=== PATIENT | male | born 1980 | race Caucasian/White ===

== ENCOUNTER 2020-12-27 22:17 | Inpatient (IN) | payer BC, OTHER ==
[~2020-12-27] VITALS: Ht 172.7 cm; Wt 78.9 kg
--- NOTE | 2020-12-27 22:46 | NUR ---
PT PRESENTS TO THE ER FOR CHIEF COMPLAINT OF BEING COVID POSITIVE, PTS SON HAD COVID AND PT STATED HE JUST KNEW HE HAD IT WELL, PT HAD A POSITIVE RAPID TEST LAST FRIDAY AND A POSITIVE PCR TEST ON FRIDAY, PTS HOME O2 SATURATION DROPPED TO 73% SO PT DECIDED TO COME IN, THIS RN STARTED PT ON 1 LPM NASAL CANULA BECAUSE PTS OXYGEN SATURATION WAS 82% ON ROOM AIR, PT HAS AN OCCASIONAL WEAK COUGH, PT CURRENTLY NOT FEBRILE
[2020-12-27] MEDS ORDERED: DEXAMETHASONE 10 MG in SODIUM CHLORIDE 0.9% 50 ML IV SCH (23:30)
[2020-12-27] MEDS ORDERED: SODIUM CHLORIDE FLUSH 10ML SYR IVF ONE (23:30)
[2020-12-27] MEDS ORDERED: SODIUM CHLORIDE 0.9% 1,000ML IVBOLUS ONE (23:30)
[2020-12-27] MEDS ORDERED: DEXAMETHASONE 4 MG/ML, 1ML IV ONE (23:30)
[2020-12-27] MEDS ORDERED: PLEASE ENTER ALLERGIES MC SCH (23:30)
[2020-12-27] MEDS ORDERED: DEXAMETHASONE 4 MG/ML, 1ML ONE (23:47)
[2020-12-27 23:54] LABS: ALANINE AMINOTRANSFERASE 58 U/L (12-78); ANION GAP 5 mmol/L (5-15); CALCIUM 8.1 mg/dL (8.5-10.1); CHLORIDE 104 mmol/L (98-107); CREATININE 0.77 mg/dL (0.7-1.3)
[2020-12-27 23:57] LABS: ALKALINE PHOSPHATASE 53 U/L (45-117); BASOPHILS % (AUTO) 1 % (0-1); BILIRUBIN,TOTAL 0.5 mg/dL (0.2-1.0); EOSINOPHILS % (AUTO) 0 % (1-7); LYMPHOCYTES % (AUTO) 12 % (22-44); MEAN CORPUSCULAR HEMOGLOBIN 29.1 pg (27.5-34.5); MEAN CORPUSCULAR HGB CONC 34.4 g/dL (33.2-36.2); MEAN PLATELET VOLUME 7.9 fL (7.4-10.4); MONOCYTES % (AUTO) 6 % (2-9); NEUTROPHILS % (AUTO) 82 % (42-75); PLATELET COUNT 198 x10^3/uL (130-400); RED BLOOD COUNT 4.64 x10^6/uL (4.38-5.82); RED CELL DISTRIBUTION WIDTH 13.1 % (9.4-14.8); TOTAL PROTEIN 6.5 g/dL (6.4-8.2)
[2020-12-28] MEDS ORDERED: AZITHROMYCIN 500 MG in SODIUM CHLORIDE 0.9% 250 ML IV ONE
--- NOTE | 2020-12-28 00:05 | NUR ---
PT LAYING IN BED, A/OX4, ALL NEEDS IN REACH, CALL LIHGT IN REACH, NAD AT THIS TIME, PT STATES HE FEELS MUCH BETTER HOOKED UP TO SOME OXYGEN, PT ON 1 LPM NASAL CANULA
[2020-12-28] MEDS ORDERED: ENALAPRILAT 1.25 MG/ML, 2ML IVPush PRN (00:30)
[2020-12-28] MEDS ORDERED: GUAIFENESIN/DM 200-20MG, 10ML UDC PO PRN (00:30)
[2020-12-28] MEDS ORDERED: morphine SULFATE 10 MG/ML, 1ML IVPush PRN (00:30)
[2020-12-28] MEDS ORDERED: ZOLPIDEM 5MG TABLET PO PRN (00:30)
[2020-12-28] MEDS ORDERED: REMDESIVIR 200 MG in SODIUM CHLORIDE 0.9% 250 ML IVPB ONE (00:30)
[2020-12-28] MEDS ORDERED: BACLOFEN 10 MG TABLET PO PRN (00:30)
[2020-12-28] MEDS ORDERED: AZITHROMYCIN 500 MG in SODIUM CHLORIDE 0.9% 250 ML IV SCH (00:30)
[2020-12-28] MEDS ORDERED: DOCUSATE 100 MG CAPSULE PO PRN (00:30)
[2020-12-28] MEDS ORDERED: ACETAMINOPHEN 325 MG TABLET PO PRN (00:30)
[2020-12-28] MEDS ORDERED: OXYcodone IR 5MG TABLET PO PRN (00:30)
[2020-12-28] MEDS ORDERED: CEFTRIAXONE 1,000 MG in DEXTROSE 5% 50 ML IVPB SCH (00:30)
[2020-12-28] MEDS ORDERED: PHARMACY MAY ADJ FOR RENAL FX MC PRN (00:30)
[2020-12-28 00:58] VITALS: BP 115/72
[2020-12-28] MEDS: BENZONATATE 100 MG CAPSULE PO SCH ×4 (01:51→20:28)
[2020-12-28] MEDS: ONDANSETRON 2MG/ML, 2ML IVPush PRN ×2 (01:52→08:37)
[2020-12-28] MEDS: ENOXAPARIN 40 MG/0.4 ML SQ SCH (01:52)
[2020-12-28] MEDS: CEFTRIAXONE 1,000 MG in DEXTROSE 5% 50 ML IVPB SCH (03:30)
[2020-12-28] MEDS ORDERED: ALBUTEROL-IPRATROPIUM MDI INH INH SCH (06:00)
[2020-12-28 06:28] LABS: ALANINE AMINOTRANSFERASE 54 U/L (12-78); ALBUMIN 2.6 g/dL (3.4-5.0); ANION GAP 6 mmol/L (5-15); CALCIUM 7.8 mg/dL (8.5-10.1); CHLORIDE 110 mmol/L (98-107); CREATININE 0.79 mg/dL (0.7-1.3)
[2020-12-28 06:30] LABS: ALKALINE PHOSPHATASE 53 U/L (45-117); BILIRUBIN,TOTAL 0.3 mg/dL (0.2-1.0)
[2020-12-28 08:13] VITALS: BP 107/68
[2020-12-28] MEDS: DEXAMETHASONE 4 MG TABLET PO SCH (08:39)
[2020-12-28] MEDS: ASCORBIC ACID 500 MG TABLET PO SCH ×2 (08:39→20:28)
[2020-12-28] MEDS: ZINC SULFATE 220 MG CAPSULE PO SCH (08:39)
[2020-12-28] MEDS: ALBUTEROL-IPRATROPIUM MDI INH INH SCH ×4 (09:43→20:28)
[2020-12-28] MEDS: CHOLECALCIFEROL 5,000u TAB PO SCH (15:10)
[2020-12-28 15:27] VITALS: BP 107/67
[2020-12-28 19:10] VITALS: BP 111/66
[2020-12-28] MEDS: THIAMINE 100MG TABLET PO SCH (20:28)
[2020-12-28] MEDS ORDERED: MELATONIN 5 MG TABLET PO SCH (21:00)
[2020-12-29] MEDS: ENOXAPARIN 40 MG/0.4 ML SQ SCH (00:24)
[2020-12-29 00:30] VITALS: BP 112/67
[2020-12-29] MEDS ORDERED: AZITHROMYCIN 500 MG in SODIUM CHLORIDE 0.9% 250 ML IV SCH (00:30)
[2020-12-29] MEDS ORDERED: REMDESIVIR 100 MG in SODIUM CHLORIDE 0.9% 250 ML IVPB SCH (00:30)
[2020-12-29] MEDS: CEFTRIAXONE 1,000 MG in DEXTROSE 5% 50 ML IVPB SCH ×2 (03:59→06:00)
[2020-12-29 05:25] LABS: HCT (SEDRATE) 38.8 % (39.2-51.8)
[2020-12-29 05:28] LABS: BASOPHILS % (AUTO) 0 % (0-1); EOSINOPHILS % (AUTO) 0 % (1-7); LYMPHOCYTES % (AUTO) 7 % (22-44); MEAN CORPUSCULAR HEMOGLOBIN 29.6 pg (27.5-34.5); MEAN PLATELET VOLUME 8.2 fL (7.4-10.4); MONOCYTES % (AUTO) 6 % (2-9); NEUTROPHILS % (AUTO) 87 % (42-75); PLATELET COUNT 248 x10^3/uL (130-400); RED BLOOD COUNT 4.66 x10^6/uL (4.38-5.82); RED CELL DISTRIBUTION WIDTH 13.4 % (9.4-14.8)
[2020-12-29 05:38] LABS: ALBUMIN 2.5 g/dL (3.4-5.0); CALCIUM 7.9 mg/dL (8.5-10.1); CHLORIDE 109 mmol/L (98-107)
[2020-12-29 05:51] LABS: ALANINE AMINOTRANSFERASE 52 U/L (12-78); ALKALINE PHOSPHATASE 47 U/L (45-117); ANION GAP 5 mmol/L (5-15); BILIRUBIN,TOTAL 0.3 mg/dL (0.2-1.0); CREATININE 0.68 mg/dL (0.7-1.3)
[2020-12-29] MEDS: CHOLECALCIFEROL 5,000u TAB PO SCH (09:26)
[2020-12-29] MEDS: BENZONATATE 100 MG CAPSULE PO SCH (09:26)
[2020-12-29] MEDS: DEXAMETHASONE 4 MG TABLET PO SCH (09:26)
[2020-12-29] MEDS: ASCORBIC ACID 500 MG TABLET PO SCH (09:26)
[2020-12-29] MEDS: ZINC SULFATE 220 MG CAPSULE PO SCH (09:27)
[2020-12-29] MEDS: THIAMINE 100MG TABLET PO SCH (09:27)
[2020-12-29 09:30] VITALS: BP 120/80
[2020-12-29] MEDS: ALBUTEROL-IPRATROPIUM MDI INH INH SCH (09:30)
[2020-12-29] MEDS ORDERED: PRED20TA PO (10:06)
[2020-12-29] MEDS ORDERED: AZIT500T10 PO (10:06)
[2020-12-29] MEDS ORDERED: AMOX-291 PO (10:06)
== END 2020-12-29 13:19 | disposition home or self-care (01) | DRG 177 ==
LOC: ED 23:40 → EDIP 12-28 00:21 → 3N 12-28 01:02
PROVIDERS: ADMIT Internal Medicine; ATTEND Family Medicine
DX: U07.1 COVID-19 (principal); J12.82 Pneumonia due to coronavirus disease 2019; J96.01 Acute respiratory failure with hypoxia; D64.9 Anemia, unspecified
CPT/HCPCS: 36415; 71045; 80053; 82728; 83605; 83615; 84145; 85025; 85379; 85651; 86140; 87040; 93005; 96365; 96375; G0378; J0456; J0696; J1100; J1650; J2405; J7030; J7050

== ENCOUNTER 2021-01-01 08:06 | Inpatient (IN) | payer BC ==
[~2021-01-01] VITALS: Ht 172.7 cm; Wt 76.3 kg
[~2021-01-01 08:06] MED LIST: AMOX-291 PO; AZIT500T10 PO; PRED20TA PO
--- NOTE | 2021-01-01 08:13 | NUR ---
PT BIBA FROM HOME FOR C/O SOB. PT POSITIVE FOR COVID 2 WEEKS AGO, STARTING LAST NIGHT PT FELT SOB. SPO2 IN 70'S. PT HAD HOME O2, USED 5L NC AND SPO2 AT 62%. 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 PT ON PREDNISONE, AMOXICILLIN & COMBAVENT. PT CONNECTED TO MONITORS. SPO2, 77% ON 15L NRB.
--- NOTE | 2021-01-01 08:15 | NUR ---
ERP AT BS
--- NOTE | 2021-01-01 08:17 | NUR ---
RT AT BS
--- NOTE | 2021-01-01 08:20 | NUR ---
RT AT BS, PT PLACED ON OPTI FLOW, 45L @ 100%. PT SPO2 AT 92%. PT RR 40.
[2021-01-01] MEDS ORDERED: SODIUM CHLORIDE 0.9% 1,000ML IVBOLUS ONE (08:30)
[2021-01-01] MEDS ORDERED: SODIUM CHLORIDE FLUSH 10ML SYR IVF ONE (08:30)
--- NOTE | 2021-01-01 08:32 | NUR ---
LAB AT , CULTURES DRAWN X2
--- NOTE | 2021-01-01 08:44 | NUR ---
RT AT BS, PT PLACED ON CPAP. IPAP-12, RATE-8 & 100%. PT TOLERATING CPAP WELL.
[2021-01-01 08:50] LABS: MEAN CORPUSCULAR HEMOGLOBIN 28.9 pg (27.5-34.5); MEAN CORPUSCULAR HGB CONC 34.1 g/dL (33.2-36.2); PLATELET COUNT 187 x10^3/uL (130-400); RED BLOOD COUNT 4.84 x10^6/uL (4.38-5.82); RED CELL DISTRIBUTION WIDTH 13.3 % (9.4-14.8)
--- NOTE | 2021-01-01 08:52 | NUR ---
PER RT, PT CPAP TURNED DOWN TO 70%. RR:24, SPO2: 97
--- NOTE | 2021-01-01 08:54 | NUR ---
XRAY AT BS
--- NOTE | 2021-01-01 08:59 | NUR ---
PT TOOK OFF CPAP, COMPLAINING ITS TOO HOT AND CLAUSTERPHOBIC. RT NOTFIED. RT ON THEIR WAY TO ROOM. PT PLACED BACK ON 15L NRB
[2021-01-01 09:00] LABS: ALANINE AMINOTRANSFERASE 63 U/L (12-78); ALBUMIN 2.6 g/dL (3.4-5.0); ANION GAP 5 mmol/L (5-15); CHLORIDE 113 mmol/L (98-107); CREATININE 0.83 mg/dL (0.7-1.3)
--- NOTE | 2021-01-01 09:01 | NUR ---
RT AT BS
[2021-01-01 09:04] LABS: ALKALINE PHOSPHATASE 81 U/L (45-117); BILIRUBIN,TOTAL 0.6 mg/dL (0.2-1.0); TOTAL PROTEIN 6.2 g/dL (6.4-8.2); TROPONIN I < 0.015 ng/mL (0.000-0.045)
[2021-01-01] MEDS ORDERED: LORazepam 2 MG/ML, 1ML ONE (09:10)
--- NOTE | 2021-01-01 09:12 | NUR ---
ERP & RT AT BS. PT MEDICATED PER EMAR
[2021-01-01 09:17] LABS: BANDS%(MANUAL) 4 % (0-7); LYMPH#(MANUAL) 0.35 x10^3/uL (1-3.4); LYMPHS% (MANUAL) 2 % (22-44); MONOS#(MANUAL) 0.35 x10^3/uL (0.3-2.7); MONOS% (MANUAL) 2 % (2-9); SEGS% (MANUAL) 92 % (42-75)
[2021-01-01 09:18] LABS: <PLATELET ESTIMATE> ADEQUATE; <PLT MORPHOLOGY> NORMAL PLT MORPH; <RBC MORPHOLOGY> NORMAL
--- NOTE | 2021-01-01 09:18 | NUR ---
PT PLACED BACK ON CPAP AFTER MEDICATION WITH ATIVAN. PT TOLERATED CPAP WELL. O2 @ 70%
[2021-01-01] MEDS ORDERED: LORazepam 2 MG/ML, 1ML IVPush ONE (09:30)
--- NOTE | 2021-01-01 09:31 | NUR ---
TASK RN NOTE: PER DR MOREAU, PT WILL REMAIN ON PRESENT O2 "FOR ABOUT 10-15 MINUTES" TO SEE HOW PT TOLERATES THIS MODE OF OXYGENATION. RSI KIT AVAILABLE IN ANTEROOM.
[2021-01-01] MEDS ORDERED: THIAMINE 100MG TABLET ONE ×2 (09:53→11:19)
[2021-01-01] MEDS ORDERED: DEXAMETHASONE 4 MG/ML, 1ML IVPush SCH (10:00)
[2021-01-01] MEDS ORDERED: PIPERACILLIN/TAZO 3.375 GM in DEXTROSE 5% 50 ML IVPB ONE (10:00)
[2021-01-01] MEDS ORDERED: DEXAMETHASONE 4 MG/ML, 5ML ONE (10:06)
--- NOTE | 2021-01-01 10:25 | NUR ---
PT SITTING ON GURNEY, CPAP AT 70%. PT TOLERATING IT WELL. SPO2 95%. IVF/ANTIBX INFUSING. CALL LIGHT WITHIN REACH. NO NEEDS AT THIS TIME
[2021-01-01] MEDS ORDERED: ENOXAPARIN 40 MG/0.4 ML SQ SCH (10:30)
[2021-01-01] MEDS ORDERED: REMDESIVIR 200 MG in SODIUM CHLORIDE 0.9% 250 ML IVPB ONE (10:30)
[2021-01-01] MEDS ORDERED: DOCUSATE 100 MG CAPSULE PO PRN (10:30)
--- NOTE | 2021-01-01 10:35 | NUR ---
Pt to be admitted to CCU, room 542. Report called to CRYSTAL.
[2021-01-01 10:38] LABS: C-REACTIVE PROTEIN, QUANT 2.6 mg/dL (0.02-0.49)
[2021-01-01] MEDS ORDERED: ENOXAPARIN 80 MG/0.8 ML ONE ×2 (11:07→11:18)
[2021-01-01] MEDS ORDERED: ENOXAPARIN 40 MG/0.4 ML ONE (11:19)
[2021-01-01] MEDS: THIAMINE 100MG TABLET PO SCH (11:29)
[2021-01-01] MEDS: CHOLECALCIFEROL 1,000 UNIT TABLET PO SCH (11:29)
[2021-01-01] MEDS ORDERED: ONDANSETRON 2MG/ML, 2ML IVPush PRN (11:30)
[2021-01-01] MEDS ORDERED: LORazepam 2 MG/ML, 1ML IVPush PRN (11:30)
[2021-01-01] MEDS ORDERED: hydrALAzine 20 MG/ML, 1ML IVPush PRN (11:30)
[2021-01-01] MEDS: ZINC SULFATE 220 MG CAPSULE PO SCH (11:31)
[2021-01-01] MEDS: ENOXAPARIN 80 MG/0.8 ML SQ SCH (11:32)
[2021-01-01] MEDS: MEROPENEM 1 GM in SODIUM CHLORIDE 0.9% 100 ML IV SCH ×2 (11:40→20:43)
[2021-01-01] MEDS: ALBUTEROL/IPRATROPIUM 2.5MG/0.5MG, 3 ML HHN SCH ×3 (11:55→20:15)
[2021-01-01] MEDS ORDERED: DEXMEDETOMIDINE 400 MCG in SODIUM CHLORIDE 0.9% 96 ML IV PRN (12:00)
[2021-01-01] MEDS ORDERED: TOCILIZUMAB 600 MG in SODIUM CHLORIDE 0.9% 70 ML IVPB ONE (12:30)
[2021-01-01 13:30] LABS: MICROSCOPIC AUTO
[2021-01-01] MEDS ORDERED: FENTANYL PF 100 MCG/2ML ONE (14:12)
[2021-01-01] MEDS ORDERED: GLUCAGON 1 MG IM PRN (15:30)
[2021-01-01] MEDS ORDERED: LIDOCAINE-MPF 1%, 2ML ENDO PRN (15:30)
[2021-01-01] MEDS ORDERED: PHARMACY MAY ADJ FOR RENAL FX MC SCH (15:30)
[2021-01-01] MEDS ORDERED: MIDAZOLAM HCL 50 MG in SODIUM CHLORIDE 0.9% 40 ML IV PRN (15:30)
[2021-01-01] MEDS ORDERED: DEXTROSE 50%, 50ML SYRINGE IVPush PRN (15:30)
[2021-01-01] MEDS ORDERED: NOREPINEPHRINE 8 MG in SODIUM CHLORIDE 0.9% 242 ML IV PRN (15:30)
[2021-01-01] MEDS ORDERED: DEXTROSE 4 GM TAB.CHEW PO PRN (15:30)
[2021-01-01] MEDS: ASCORBIC ACID 500 MG TABLET PO SCH (16:28)
[2021-01-01] MEDS: POTASSIUM CHLORIDE 20 MEQ TAB.ER.PRT PO SCH (16:29)
[2021-01-01] MEDS: FUROSEMIDE 40 MG/4 ML IV SCH (16:29)
[2021-01-01] MEDS: MIDAZOLAM HCL 50 MG in SODIUM CHLORIDE 0.9% 40 ML IV PRN (16:31)
[2021-01-01] MEDS: PROPOFOL 100 ML IV PRN ×2 (17:23→20:49)
[2021-01-01] MEDS: FENTANYL PF 1,000 MCG in SODIUM CHLORIDE 0.9% 80 ML IV PRN (18:11)
[2021-01-01] MEDS: FAMOTIDINE 20 MG/2 ML IVPush SCH (20:44)
[2021-01-01] MEDS: SODIUM CHLORIDE FLUSH 10ML SYR IVF SCH ×2 (20:44)
[2021-01-01] MEDS: SENNA/DOCUSATE TABLET NG SCH (20:49)
[2021-01-01] MEDS: MELATONIN 5 MG TABLET PO SCH (20:49)
[2021-01-02] MEDS: ENOXAPARIN 80 MG/0.8 ML SQ SCH ×2 (00:52→12:23)
[2021-01-02] MEDS: PROPOFOL 100 ML IV PRN ×6 (00:53→22:16)
[2021-01-02] MEDS: MIDAZOLAM HCL 50 MG in SODIUM CHLORIDE 0.9% 40 ML IV PRN ×2 (01:02→08:25)
[2021-01-02] MEDS: ALBUTEROL/IPRATROPIUM 2.5MG/0.5MG, 3 ML HHN SCH ×5 (02:15→22:00)
[2021-01-02] MEDS: MEROPENEM 1 GM in SODIUM CHLORIDE 0.9% 100 ML IV SCH ×3 (04:00→19:55)
[2021-01-02 04:19] LABS: BASOPHILS % (AUTO) 0 % (0-1); EOSINOPHILS % (AUTO) 1 % (1-7); LYMPHOCYTES % (AUTO) 7 % (22-44); MEAN CORPUSCULAR HEMOGLOBIN 29.7 pg (27.5-34.5); MEAN CORPUSCULAR HGB CONC 34.7 g/dL (33.2-36.2); MEAN PLATELET VOLUME 7.7 fL (7.4-10.4); MONOCYTES % (AUTO) 4 % (2-9); NEUTROPHILS % (AUTO) 88 % (42-75); PLATELET COUNT 172 x10^3/uL (130-400); RED BLOOD COUNT 4.38 x10^6/uL (4.38-5.82); RED CELL DISTRIBUTION WIDTH 13.5 % (9.4-14.8)
[2021-01-02 04:29] LABS: ALANINE AMINOTRANSFERASE 43 U/L (12-78); ALBUMIN 2.1 g/dL (3.4-5.0); ANION GAP 4 mmol/L (5-15); CALCIUM 7.6 mg/dL (8.5-10.1); CHLORIDE 111 mmol/L (98-107); CREATININE 0.58 mg/dL (0.7-1.3)
[2021-01-02 04:32] LABS: ALKALINE PHOSPHATASE 66 U/L (45-117); BILIRUBIN,TOTAL 0.6 mg/dL (0.2-1.0); TOTAL PROTEIN 5.5 g/dL (6.4-8.2)
[2021-01-02] MEDS: FENTANYL PF 1,000 MCG in SODIUM CHLORIDE 0.9% 80 ML IV PRN ×2 (05:46→13:37)
[2021-01-02] MEDS: FUROSEMIDE 40 MG/4 ML IV SCH ×2 (08:24→16:53)
[2021-01-02] MEDS: FAMOTIDINE 20 MG/2 ML IVPush SCH ×2 (08:25→19:55)
[2021-01-02] MEDS: ASCORBIC ACID 500 MG TABLET PO SCH ×2 (08:25→16:53)
[2021-01-02] MEDS: POTASSIUM CHLORIDE 20 MEQ TAB.ER.PRT PO SCH ×2 (08:25→16:53)
[2021-01-02] MEDS: SODIUM CHLORIDE FLUSH 10ML SYR IVF SCH ×4 (08:26→19:55)
[2021-01-02] MEDS ORDERED: TOCILIZUMAB 600 MG in SODIUM CHLORIDE 0.9% 70 ML IVPB ONE (08:30)
[2021-01-02] MEDS: DEXAMETHASONE 4 MG/ML, 1ML IVPush SCH (10:49)
[2021-01-02] MEDS: REMDESIVIR 100 MG in SODIUM CHLORIDE 0.9% 250 ML IVPB SCH (10:56)
[2021-01-02] MEDS: THIAMINE 100MG TABLET PO SCH (12:23)
[2021-01-02] MEDS: ZINC SULFATE 220 MG CAPSULE PO SCH (12:23)
[2021-01-02] MEDS: CHOLECALCIFEROL 1,000 UNIT TABLET PO SCH (12:24)
--- NOTE | 2021-01-02 14:03 | NUR ---
Promote TF: goal: off propofol: 60 ml/hr, on propofol: 50 ml/hr Addendum: 01/02/21 at [address] Amended: Links added.
[2021-01-02] MEDS: MELATONIN 5 MG TABLET PO SCH (19:55)
[2021-01-02] MEDS: SENNA/DOCUSATE TABLET NG SCH (19:55)
[2021-01-03] MEDS: ENOXAPARIN 80 MG/0.8 ML SQ SCH ×3 (00:01→23:55)
[2021-01-03] MEDS: PROPOFOL 100 ML IV PRN ×5 (00:51→23:56)
[2021-01-03] MEDS: FENTANYL PF 1,000 MCG in SODIUM CHLORIDE 0.9% 80 ML IV PRN ×2 (04:11→15:59)
[2021-01-03] MEDS: MEROPENEM 1 GM in SODIUM CHLORIDE 0.9% 100 ML IV SCH ×3 (04:12→20:20)
[2021-01-03 04:33] LABS: BASOPHILS % (AUTO) 0 % (0-1); EOSINOPHILS % (AUTO) 1 % (1-7); LYMPHOCYTES % (AUTO) 6 % (22-44); MONOCYTES % (AUTO) 6 % (2-9); NEUTROPHILS % (AUTO) 88 % (42-75); PLATELET COUNT 221 x10^3/uL (130-400); RED BLOOD COUNT 4.88 x10^6/uL (4.38-5.82); RED CELL DISTRIBUTION WIDTH 13.5 % (9.4-14.8)
[2021-01-03 04:45] LABS: ANION GAP 5 mmol/L (5-15); CHLORIDE 105 mmol/L (98-107); CREATININE 0.71 mg/dL (0.7-1.3)
[2021-01-03] MEDS: ALBUTEROL/IPRATROPIUM 2.5MG/0.5MG, 3 ML HHN SCH ×4 (07:09→21:00)
[2021-01-03] MEDS: FUROSEMIDE 40 MG/4 ML IV SCH (07:12)
[2021-01-03] MEDS: FAMOTIDINE 20 MG/2 ML IVPush SCH ×2 (07:17→20:20)
[2021-01-03] MEDS: SODIUM CHLORIDE FLUSH 10ML SYR IVF SCH ×4 (07:17→20:20)
[2021-01-03] MEDS: ASCORBIC ACID 500 MG TABLET PO SCH ×2 (07:17→16:00)
[2021-01-03] MEDS: POTASSIUM CHLORIDE 20 MEQ TAB.ER.PRT PO SCH (07:17)
[2021-01-03] MEDS: DEXAMETHASONE 4 MG/ML, 1ML IVPush SCH (10:10)
[2021-01-03] MEDS: REMDESIVIR 100 MG in SODIUM CHLORIDE 0.9% 250 ML IVPB SCH (10:10)
[2021-01-03] MEDS: SENNA/DOCUSATE TABLET NG SCH ×2 (10:11→20:21)
[2021-01-03] MEDS: METHYLNALTREXONE 12 MG/0.6 ML SYR SQ SCH (10:11)
[2021-01-03] MEDS: CHOLECALCIFEROL 1,000 UNIT TABLET PO SCH (10:11)
[2021-01-03] MEDS: THIAMINE 100MG TABLET PO SCH (12:52)
[2021-01-03] MEDS: ZINC SULFATE 220 MG CAPSULE PO SCH (12:52)
[2021-01-03] MEDS: MIDAZOLAM HCL 50 MG in SODIUM CHLORIDE 0.9% 40 ML IV PRN (15:59)
[2021-01-03] MEDS: MELATONIN 5 MG TABLET PO SCH (20:21)
[2021-01-04] MEDS: ALBUTEROL/IPRATROPIUM 2.5MG/0.5MG, 3 ML HHN SCH ×4 (03:00→20:19)
[2021-01-04] MEDS: MEROPENEM 1 GM in SODIUM CHLORIDE 0.9% 100 ML IV SCH ×3 (04:00→20:06)
[2021-01-04] MEDS: PROPOFOL 100 ML IV PRN ×6 (04:01→23:55)
[2021-01-04 04:30] LABS: BASOPHILS % (AUTO) 0 % (0-1); EOSINOPHILS % (AUTO) 3 % (1-7); LYMPHOCYTES % (AUTO) 8 % (22-44); MEAN CORPUSCULAR HEMOGLOBIN 29.4 pg (27.5-34.5); MEAN CORPUSCULAR HGB CONC 34.2 g/dL (33.2-36.2); MONOCYTES % (AUTO) 6 % (2-9); NEUTROPHILS % (AUTO) 82 % (42-75); PLATELET COUNT 208 x10^3/uL (130-400); RED BLOOD COUNT 4.66 x10^6/uL (4.38-5.82); RED CELL DISTRIBUTION WIDTH 13.3 % (9.4-14.8)
[2021-01-04 04:40] LABS: ANION GAP 6 mmol/L (5-15); CALCIUM 7.8 mg/dL (8.5-10.1); CHLORIDE 104 mmol/L (98-107); CREATININE 0.68 mg/dL (0.7-1.3); TRIGLYCERIDES 233 mg/dL (50-200)
[2021-01-04] MEDS: SENNA/DOCUSATE TABLET NG SCH ×2 (07:40→21:02)
[2021-01-04] MEDS: ASCORBIC ACID 500 MG TABLET PO SCH ×2 (07:40→18:35)
[2021-01-04] MEDS: SODIUM CHLORIDE FLUSH 10ML SYR IVF SCH ×4 (07:41→21:02)
[2021-01-04] MEDS: FAMOTIDINE 20 MG/2 ML IVPush SCH ×2 (07:41→21:02)
[2021-01-04] MEDS: FUROSEMIDE 40 MG/4 ML IV SCH (07:41)
[2021-01-04] MEDS ORDERED: POTASSIUM CHLORIDE 20 MEQ TAB.ER.PRT PO SCH (09:00)
[2021-01-04] MEDS: DEXAMETHASONE 4 MG/ML, 1ML IVPush SCH (09:08)
[2021-01-04] MEDS: REMDESIVIR 100 MG in SODIUM CHLORIDE 0.9% 250 ML IVPB SCH (10:09)
[2021-01-04] MEDS: SCOPOLAMINE 1MG PATCH TD SCH (10:16)
[2021-01-04] MEDS: FENTANYL PF 1,000 MCG in SODIUM CHLORIDE 0.9% 80 ML IV PRN (11:19)
[2021-01-04] MEDS: ZINC SULFATE 220 MG CAPSULE PO SCH (12:27)
[2021-01-04] MEDS: ENOXAPARIN 80 MG/0.8 ML SQ SCH ×2 (12:27→23:53)
[2021-01-04] MEDS: CHOLECALCIFEROL 1,000 UNIT TABLET PO SCH (12:27)
[2021-01-04] MEDS: THIAMINE 100MG TABLET PO SCH (12:27)
[2021-01-04] MEDS: MELATONIN 5 MG TABLET PO SCH (21:02)
[2021-01-05] MEDS: ALBUTEROL/IPRATROPIUM 2.5MG/0.5MG, 3 ML HHN SCH ×4 (03:00→21:00)
[2021-01-05] MEDS: MIDAZOLAM HCL 50 MG in SODIUM CHLORIDE 0.9% 40 ML IV PRN ×2 (03:18→05:57)
[2021-01-05] MEDS: MEROPENEM 1 GM in SODIUM CHLORIDE 0.9% 100 ML IV SCH ×3 (03:52→20:07)
[2021-01-05] MEDS: PROPOFOL 100 ML IV PRN ×3 (04:47→17:57)
[2021-01-05 04:50] LABS: BASOPHILS % (AUTO) 0 % (0-1); EOSINOPHILS % (AUTO) 2 % (1-7); LYMPHOCYTES % (AUTO) 4 % (22-44); MEAN CORPUSCULAR HEMOGLOBIN 29.4 pg (27.5-34.5); MEAN CORPUSCULAR HGB CONC 34.1 g/dL (33.2-36.2); MEAN PLATELET VOLUME 7.9 fL (7.4-10.4); MONOCYTES % (AUTO) 5 % (2-9); NEUTROPHILS % (AUTO) 89 % (42-75); PLATELET COUNT 239 x10^3/uL (130-400); RED BLOOD COUNT 5.08 x10^6/uL (4.38-5.82); RED CELL DISTRIBUTION WIDTH 13.6 % (9.4-14.8)
[2021-01-05 05:04] LABS: ANION GAP 6 mmol/L (5-15); CALCIUM 8.3 mg/dL (8.5-10.1); CHLORIDE 104 mmol/L (98-107); CREATININE 0.73 mg/dL (0.7-1.3)
[2021-01-05] MEDS: ASCORBIC ACID 500 MG TABLET PO SCH ×2 (08:24→16:02)
[2021-01-05] MEDS: SENNA/DOCUSATE TABLET NG SCH ×2 (08:25→20:33)
[2021-01-05] MEDS: FAMOTIDINE 20 MG/2 ML IVPush SCH ×2 (08:25→20:33)
[2021-01-05] MEDS: SODIUM CHLORIDE FLUSH 10ML SYR IVF SCH ×4 (08:25→20:33)
[2021-01-05] MEDS: METHYLNALTREXONE 12 MG/0.6 ML SYR SQ SCH (08:25)
[2021-01-05] MEDS: DEXAMETHASONE 4 MG/ML, 1ML IVPush SCH (08:25)
[2021-01-05] MEDS: FUROSEMIDE 40 MG/4 ML IV SCH (08:25)
[2021-01-05] MEDS: REMDESIVIR 100 MG in SODIUM CHLORIDE 0.9% 250 ML IVPB SCH (10:49)
[2021-01-05] MEDS: CHOLECALCIFEROL 1,000 UNIT TABLET PO SCH (10:50)
[2021-01-05] MEDS: ZINC SULFATE 220 MG CAPSULE PO SCH (10:50)
[2021-01-05] MEDS: THIAMINE 100MG TABLET PO SCH (10:50)
[2021-01-05] MEDS: ENOXAPARIN 80 MG/0.8 ML SQ SCH ×2 (12:22→23:49)
[2021-01-05] MEDS ORDERED: BISACODYL 10 MG SUPP PR PRN (15:00)
[2021-01-05] MEDS ORDERED: LACTULOSE 20 GM/30 ML UDC PO PRN (19:30)
[2021-01-05] MEDS: MELATONIN 5 MG TABLET PO SCH (20:33)
[2021-01-06] MEDS: PROPOFOL 100 ML IV PRN ×4 (00:58→17:47)
[2021-01-06] MEDS: ALBUTEROL/IPRATROPIUM 2.5MG/0.5MG, 3 ML HHN SCH ×4 (03:00→21:00)
[2021-01-06] MEDS: MEROPENEM 1 GM in SODIUM CHLORIDE 0.9% 100 ML IV SCH ×3 (04:29→19:38)
[2021-01-06 04:30] LABS: BASOPHILS % (AUTO) 1 % (0-1); EOSINOPHILS % (AUTO) 3 % (1-7); LYMPHOCYTES % (AUTO) 7 % (22-44); MEAN CORPUSCULAR HEMOGLOBIN 29.2 pg (27.5-34.5); MEAN CORPUSCULAR HGB CONC 34.2 g/dL (33.2-36.2); MEAN PLATELET VOLUME 8.1 fL (7.4-10.4); MONOCYTES % (AUTO) 6 % (2-9); NEUTROPHILS % (AUTO) 83 % (42-75); PLATELET COUNT 194 x10^3/uL (130-400); RED BLOOD COUNT 5.08 x10^6/uL (4.38-5.82); RED CELL DISTRIBUTION WIDTH 13.8 % (9.4-14.8)
[2021-01-06 04:39] LABS: ANION GAP 3 mmol/L (5-15); CALCIUM 8.5 mg/dL (8.5-10.1); CHLORIDE 106 mmol/L (98-107)
[2021-01-06 04:40] LABS: CREATININE 0.66 mg/dL (0.7-1.3)
[2021-01-06] MEDS: SENNA/DOCUSATE TABLET NG SCH ×2 (07:56→23:52)
[2021-01-06] MEDS: ASCORBIC ACID 500 MG TABLET PO SCH ×2 (07:56→16:29)
[2021-01-06] MEDS: FAMOTIDINE 20 MG/2 ML IVPush SCH ×2 (07:56→23:52)
[2021-01-06] MEDS: SODIUM CHLORIDE FLUSH 10ML SYR IVF SCH ×4 (07:56→23:52)
[2021-01-06] MEDS: FUROSEMIDE 40 MG/4 ML IV SCH (07:56)
[2021-01-06] MEDS: DEXAMETHASONE 4 MG/ML, 1ML IVPush SCH (10:12)
[2021-01-06] MEDS: CHOLECALCIFEROL 1,000 UNIT TABLET PO SCH (11:51)
[2021-01-06] MEDS: ZINC SULFATE 220 MG CAPSULE PO SCH (11:51)
[2021-01-06] MEDS: THIAMINE 100MG TABLET PO SCH (11:51)
[2021-01-06] MEDS ORDERED: ENOXAPARIN 80 MG/0.8 ML SQ SCH (12:00)
[2021-01-06] MEDS: ENOXAPARIN 30 MG/0.3 ML SQ SCH ×2 (13:16→23:51)
[2021-01-06] MEDS: MELATONIN 5 MG TABLET PO SCH (23:53)
[2021-01-07] MEDS: ALBUTEROL/IPRATROPIUM 2.5MG/0.5MG, 3 ML HHN SCH ×2 (03:00→09:00)
[2021-01-07] MEDS: MEROPENEM 1 GM in SODIUM CHLORIDE 0.9% 100 ML IV SCH ×3 (03:49→20:14)
[2021-01-07] MEDS: PROPOFOL 100 ML IV PRN (03:51)
[2021-01-07 04:42] LABS: BASOPHILS % (AUTO) 0 % (0-1); EOSINOPHILS % (AUTO) 1 % (1-7); LYMPHOCYTES % (AUTO) 7 % (22-44); MEAN CORPUSCULAR HEMOGLOBIN 29.3 pg (27.5-34.5); MEAN CORPUSCULAR HGB CONC 34.5 g/dL (33.2-36.2); MEAN PLATELET VOLUME 8.4 fL (7.4-10.4); MONOCYTES % (AUTO) 8 % (2-9); NEUTROPHILS % (AUTO) 84 % (42-75); PLATELET COUNT 219 x10^3/uL (130-400); RED BLOOD COUNT 4.95 x10^6/uL (4.38-5.82); RED CELL DISTRIBUTION WIDTH 13.9 % (9.4-14.8)
[2021-01-07 04:54] LABS: ANION GAP 1 mmol/L (5-15); CALCIUM 8.3 mg/dL (8.5-10.1); CHLORIDE 107 mmol/L (98-107); CREATININE 0.56 mg/dL (0.7-1.3); TRIGLYCERIDES 405 mg/dL (50-200)
[2021-01-07] MEDS: ASCORBIC ACID 500 MG TABLET PO SCH ×2 (08:20→16:37)
[2021-01-07] MEDS: SODIUM CHLORIDE FLUSH 10ML SYR IVF SCH ×4 (08:21→20:15)
[2021-01-07] MEDS: SENNA/DOCUSATE TABLET NG SCH (08:21)
[2021-01-07] MEDS: AcetaZOLAMIDE INJ 500 MG IVPush SCH ×2 (08:21→20:14)
[2021-01-07] MEDS: FAMOTIDINE 20 MG/2 ML IVPush SCH ×2 (08:22→20:14)
[2021-01-07] MEDS: METHYLNALTREXONE 12 MG/0.6 ML SYR SQ SCH (08:22)
[2021-01-07] MEDS: SCOPOLAMINE 1MG PATCH TD SCH (08:25)
[2021-01-07] MEDS: CHOLECALCIFEROL 1,000 UNIT TABLET PO SCH (09:33)
[2021-01-07] MEDS: THIAMINE 100MG TABLET PO SCH (09:33)
[2021-01-07] MEDS: ZINC SULFATE 220 MG CAPSULE PO SCH (09:33)
[2021-01-07] MEDS: DEXAMETHASONE 4 MG/ML, 1ML IVPush SCH (09:33)
[2021-01-07] MEDS: ACETAMINOPHEN 325 MG TABLET PO PRN ×2 (10:52→16:46)
[2021-01-07] MEDS: ENOXAPARIN 30 MG/0.3 ML SQ SCH ×2 (12:15→23:58)
[2021-01-07] MEDS: IBUPROFEN 200 MG TABLET PO PRN ×2 (13:37→20:14)
[2021-01-07] MEDS: SENNA/DOCUSATE TABLET PO SCH (20:14)
[2021-01-07] MEDS: MELATONIN 5 MG TABLET PO SCH (20:15)
[2021-01-07] MEDS: PHENOL THROAT SPRAY BOTTLE MM PRN (23:58)
[2021-01-08 04:11] LABS: BASOPHILS % (AUTO) 1 % (0-1); EOSINOPHILS % (AUTO) 1 % (1-7); LYMPHOCYTES % (AUTO) 12 % (22-44); MEAN CORPUSCULAR HEMOGLOBIN 29.5 pg (27.5-34.5); MEAN CORPUSCULAR HGB CONC 34.5 g/dL (33.2-36.2); MEAN PLATELET VOLUME 8.5 fL (7.4-10.4); MONOCYTES % (AUTO) 9 % (2-9); NEUTROPHILS % (AUTO) 77 % (42-75); PLATELET COUNT 201 x10^3/uL (130-400); RED BLOOD COUNT 4.62 x10^6/uL (4.38-5.82); RED CELL DISTRIBUTION WIDTH 13.6 % (9.4-14.8)
[2021-01-08 04:22] LABS: ANION GAP 6 mmol/L (5-15); CHLORIDE 103 mmol/L (98-107); CREATININE 0.59 mg/dL (0.7-1.3)
[2021-01-08] MEDS: MEROPENEM 1 GM in SODIUM CHLORIDE 0.9% 100 ML IV SCH (04:31)
[2021-01-08] MEDS: IBUPROFEN 200 MG TABLET PO PRN ×3 (07:57→21:51)
[2021-01-08] MEDS: SENNA/DOCUSATE TABLET PO SCH ×2 (08:25→21:00)
[2021-01-08] MEDS: POTASSIUM CHLORIDE 20 MEQ TAB.ER.PRT PO SCH ×2 (08:25→15:35)
[2021-01-08] MEDS: ASCORBIC ACID 500 MG TABLET PO SCH ×2 (08:25→15:34)
[2021-01-08] MEDS: SODIUM CHLORIDE FLUSH 10ML SYR IVF SCH ×4 (08:26→22:05)
[2021-01-08] MEDS ORDERED: FUROSEMIDE 40 MG/4 ML IV SCH (09:00)
[2021-01-08] MEDS: ACETAMINOPHEN 325 MG TABLET PO PRN ×2 (10:53→17:30)
[2021-01-08] MEDS: THIAMINE 100MG TABLET PO SCH (10:53)
[2021-01-08] MEDS: ZINC SULFATE 220 MG CAPSULE PO SCH (10:53)
[2021-01-08] MEDS: DEXAMETHASONE 4 MG/ML, 1ML IVPush SCH (10:53)
[2021-01-08] MEDS: CHOLECALCIFEROL 1,000 UNIT TABLET PO SCH (10:54)
[2021-01-08] MEDS: ENOXAPARIN 30 MG/0.3 ML SQ SCH (10:54)
[2021-01-08] MEDS ORDERED: ALBUMIN HUMAN 25% 100 ML ONE (17:06)
[2021-01-08] MEDS: MELATONIN 5 MG TABLET PO SCH (21:00)
[2021-01-08] MEDS: PHENOL THROAT SPRAY BOTTLE MM PRN (21:53)
[2021-01-08 21:54] VITALS: BP 114/73
[2021-01-09] MEDS: ENOXAPARIN 30 MG/0.3 ML SQ SCH ×2 (00:30→11:06)
[2021-01-09] MEDS: ACETAMINOPHEN 325 MG TABLET PO PRN ×3 (00:37→21:36)
[2021-01-09 00:39] VITALS: BP 108/68
[2021-01-09 05:36] LABS: BASOPHILS % (AUTO) 0 % (0-1); EOSINOPHILS % (AUTO) 1 % (1-7); LYMPHOCYTES % (AUTO) 14 % (22-44); MEAN CORPUSCULAR HEMOGLOBIN 29.4 pg (27.5-34.5); MEAN CORPUSCULAR HGB CONC 34.4 g/dL (33.2-36.2); MEAN PLATELET VOLUME 8.7 fL (7.4-10.4); MONOCYTES % (AUTO) 11 % (2-9); NEUTROPHILS % (AUTO) 73 % (42-75); PLATELET COUNT 203 x10^3/uL (130-400); RED BLOOD COUNT 4.26 x10^6/uL (4.38-5.82); RED CELL DISTRIBUTION WIDTH 13.4 % (9.4-14.8)
[2021-01-09 05:46] LABS: ANION GAP 5 mmol/L (5-15); CALCIUM 7.9 mg/dL (8.5-10.1); CHLORIDE 109 mmol/L (98-107)
[2021-01-09 05:47] LABS: CREATININE 0.57 mg/dL (0.7-1.3)
[2021-01-09] MEDS ORDERED: IBUPROFEN 200 MG TABLET ONE (08:41)
[2021-01-09 08:53] VITALS: BP 118/77
[2021-01-09] MEDS: SODIUM CHLORIDE FLUSH 10ML SYR IVF SCH ×4 (08:55→21:35)
[2021-01-09] MEDS: ASCORBIC ACID 500 MG TABLET PO SCH ×2 (08:55→16:58)
[2021-01-09] MEDS: DEXAMETHASONE 4 MG TABLET PO SCH (08:55)
[2021-01-09] MEDS: SENNA/DOCUSATE TABLET PO SCH ×2 (08:57→21:00)
[2021-01-09] MEDS ORDERED: BUPR-86 PO (09:14)
[2021-01-09] MEDS: CHOLECALCIFEROL 1,000 UNIT TABLET PO SCH (11:06)
[2021-01-09] MEDS: ZINC SULFATE 220 MG CAPSULE PO SCH (11:06)
[2021-01-09] MEDS: THIAMINE 100MG TABLET PO SCH (11:06)
[2021-01-09] MEDS: BUPROPION SR 150 MG TABLET PO SCH (11:06)
[2021-01-09] MEDS ORDERED: IBUPROFEN 200 MG TABLET PO PRN (13:00)
[2021-01-09 15:06] VITALS: BP 130/79
[2021-01-09] MEDS: MELATONIN 5 MG TABLET PO SCH (21:36)
[2021-01-09 21:38] VITALS: BP 115/77
[2021-01-10] MEDS: ENOXAPARIN 30 MG/0.3 ML SQ SCH ×2 (00:30→11:34)
[2021-01-10 03:40] VITALS: BP 116/74
[2021-01-10] MEDS: ACETAMINOPHEN 325 MG TABLET PO PRN (05:34)
[2021-01-10 06:40] LABS: MEAN CORPUSCULAR HEMOGLOBIN 29.3 pg (27.5-34.5); PLATELET COUNT 225 x10^3/uL (130-400); RED BLOOD COUNT 4.64 x10^6/uL (4.38-5.82); RED CELL DISTRIBUTION WIDTH 13.2 % (9.4-14.8)
[2021-01-10 06:48] LABS: ANION GAP 3 mmol/L (5-15); CALCIUM 8.1 mg/dL (8.5-10.1); CHLORIDE 110 mmol/L (98-107); CREATININE 0.58 mg/dL (0.7-1.3)
[2021-01-10 07:15] LABS: BAND#(MANUAL) 0.08 x10^3/uL; BANDS%(MANUAL) 1 % (0-7); LYMPH#(MANUAL) 1.48 x10^3/uL (1-3.4); LYMPHS% (MANUAL) 18 % (22-44); METAMYELOCYTES# (MANUAL) 0.33 x10^3/uL (0-0); METAMYELOCYTES% (MANUAL) 4 % (0-1); MONOS#(MANUAL) 0.74 x10^3/uL (0.3-2.7); MONOS% (MANUAL) 9 % (2-9); MYELOCYTES# (MANUAL) 0.08 x10^3/uL (0-0); MYELOCYTES% (MANUAL) 1 % (0-0); SEG#(MANUAL) 5.49 x10^3/uL (1.8-6.8); SEGS% (MANUAL) 67 % (42-75)
[2021-01-10 07:16] LABS: <PLATELET ESTIMATE> ADEQUATE; <PLT MORPHOLOGY> NORMAL PLT MORPH; <RBC MORPHOLOGY> NORMAL
[2021-01-10] MEDS: SODIUM CHLORIDE FLUSH 10ML SYR IVF SCH ×2 (07:30→10:04)
[2021-01-10] MEDS ORDERED: SENNA/DOCUSATE TABLET PO PRN (08:00)
[2021-01-10] MEDS ORDERED: POTASSIUM CHLORIDE 20 MEQ TAB.ER.PRT PO ONE (08:00)
[2021-01-10 09:33] VITALS: BP 113/70
[2021-01-10] MEDS: BUPROPION SR 150 MG TABLET PO SCH (10:03)
[2021-01-10] MEDS: ASCORBIC ACID 500 MG TABLET PO SCH (10:03)
[2021-01-10] MEDS: DEXAMETHASONE 4 MG TABLET PO SCH (10:03)
[2021-01-10] MEDS: ZINC SULFATE 220 MG CAPSULE PO SCH (11:33)
[2021-01-10] MEDS: THIAMINE 100MG TABLET PO SCH (11:33)
[2021-01-10] MEDS: CHOLECALCIFEROL 1,000 UNIT TABLET PO SCH (11:34)
== END 2021-01-10 13:10 | disposition home or self-care (01) | DRG 870 ==
LOC: ED 08:09 → CCU 10:06 → 3N 01-08 17:21
PROVIDERS: ADMIT Hospitalist; ATTEND Internal Medicine
PROC: 5A1955Z Respiratory Ventilation, Greater than 96 Consecutive Hours (ICD-10-PCS; principal; 2021-01-01)
PROC: 0BH17EZ Insertion of Endotracheal Airway into Trachea, Via Natural or Artificial Opening (ICD-10-PCS; 2021-01-01)
PROC: 5A09357 Assistance with Respiratory Ventilation, Less than 24 Consecutive Hours, Continuous Positive Airway Pressure (ICD-10-PCS; 2021-01-01)
PROC: XW033E5 Introduction of Remdesivir Anti-infective into Peripheral Vein, Percutaneous Approach, New Technology Group 5 (ICD-10-PCS; 2021-01-02)
PROC: XW033H5 Introduction of Tocilizumab into Peripheral Vein, Percutaneous Approach, New Technology Group 5 (ICD-10-PCS; 2021-01-02)
PROC: 5A0935A Assistance with Respiratory Ventilation, Less than 24 Consecutive Hours, High Flow/Velocity Cannula (ICD-10-PCS; 2021-01-09)
DX: A41.89 Other specified sepsis (principal); U07.1 COVID-19; J96.01 Acute respiratory failure with hypoxia; J12.82 Pneumonia due to coronavirus disease 2019; G93.40 Encephalopathy, unspecified; K56.7 Ileus, unspecified; R65.20 Severe sepsis without septic shock; E87.6 Hypokalemia; E88.09 Other disorders of plasma-protein metabolism, not elsewhere classified; F90.9 Attention-deficit hyperactivity disorder, unspecified type; Z82.49 Family history of ischemic heart disease and other diseases of the circulatory system; Z91.19 Patient's noncompliance with other medical treatment and regimen; D72.810 Lymphocytopenia
CPT/HCPCS: 36415; 36600; 71045; 74018; 80048; 80053; 81001; 82803; 83605; 83615; 83735; 83880; 84100; 84145; 84478; 84484; 85025; 85379; 86140; 87040; 87070; 87081; 87205; 93005; 94002; 94003; 94640; 94660; 96374; 96375; G0378; J1100; J1650; J1940; J2185; J2250; J2543; J2704; J3010; J1120; J2060; J3262; J7030; J7050

== ENCOUNTER 2021-02-08 10:38 | Inpatient (IN) | payer BC ==
[~2021-02-08] VITALS: Ht 172.7 cm; Wt 83.0 kg
[~2021-02-08 10:38] MED LIST changes: +BUPR-86 PO
--- NOTE | 2021-02-08 10:56 | NUR ---
PATIENT WALKED BACK FROM TRIAGE WITH CHIEF C/O CHEST PAIN. PATIENT HAD COVID IN , INTUBATED IN ICU, DISCHARGED 01/11. FOR THE LAST WEEK INCREASING RIGHT SIDED CHEST PAIN, DIFFICULTY LAYING DOWN AT NIGHT, PAINFUL WITH DEEP INSPIRATIONS. PAIN HAS RADIATED TO BACK THE LAST 3 DAYS. NADN, CONNECTED TO MONITOR, HR TACHY AT 113, OTHER VSS, CALL LIGHT WITHIN REACH.
[2021-02-08] MEDS ORDERED: SODIUM CHLORIDE 0.9% 1,000ML IVBOLUS ONE (11:30)
--- NOTE | 2021-02-08 12:09 | NUR ---
Break RN note: Pt resting in bed, CARMEN, denies needs. it service technician at bedside to collect second set of blood cultures.
[2021-02-08 12:22] LABS: MEAN CORPUSCULAR HEMOGLOBIN 30.2 pg (27.5-34.5); MEAN CORPUSCULAR HGB CONC 34.6 g/dL (33.2-36.2); MEAN PLATELET VOLUME 7.7 fL (7.4-10.4); PLATELET COUNT 279 x10^3/uL (130-400); RED CELL DISTRIBUTION WIDTH 15.1 % (9.4-14.8)
[2021-02-08 12:23] LABS: ALANINE AMINOTRANSFERASE 40 U/L (12-78); ALBUMIN 3.7 g/dL (3.4-5.0); ANION GAP 10 mmol/L (5-15); CALCIUM 9.2 mg/dL (8.5-10.1); CHLORIDE 106 mmol/L (98-107); CREATININE 0.78 mg/dL (0.7-1.3)
[2021-02-08 12:25] LABS: ALKALINE PHOSPHATASE 78 U/L (45-117); BILIRUBIN,TOTAL 1.2 mg/dL (0.2-1.0); TOTAL PROTEIN 7.9 g/dL (6.4-8.2)
--- NOTE | 2021-02-08 12:44 | NUR ---
PATIENT REQUESTING PAIN MEDICINE AND ASKING TO EAT. ERMD NOTIFIED, PATIENT CAN HAVE SNACKS AND PAIN MEDICATION WILL BE ORDERED.
[2021-02-08] MEDS ORDERED: MORPHINE SULFATE 4 MG/ML, 1ML IVPush ONE ×2 (13:00→15:00)
[2021-02-08] MEDS ORDERED: MORPHINE SULFATE 4 MG/ML, 1ML ONE ×2 (13:06→14:51)
[2021-02-08 13:13] LABS: <PLATELET ESTIMATE> ADEQUATE; <PLT MORPHOLOGY> NORMAL PLT MORPH; <RBC MORPHOLOGY> NORMAL; BAND#(MANUAL) 0.45 x10^3/uL; BANDS%(MANUAL) 4 % (0-7); BASOS#(MANUAL) 0.11 x10^3/uL (0-0.1); BASOS% (MANUAL) 1 % (0-1); EOS#(MANUAL) 0.11 x10^3/uL (0.0-0.4); EOS% (MANUAL) 1 % (1-7); LYMPH#(MANUAL) 1.36 x10^3/uL (1-3.4); LYMPHS% (MANUAL) 12 % (22-44); MONOS#(MANUAL) 1.58 x10^3/uL (0.3-2.7); MONOS% (MANUAL) 14 % (2-9); SEG#(MANUAL) 7.68 x10^3/uL (1.8-6.8); SEGS% (MANUAL) 68 % (42-75)
--- NOTE | 2021-02-08 13:45 | NUR ---
PATIENT TO IMAGING.
--- NOTE | 2021-02-08 14:11 | NUR ---
PATIENT BACK IN ROOM, REPORTS PAIN LEVEL HAS DECREASED TO A 3/10, CONNECTED TO MONITOR, VSS, CALL LIGHT WITHIN REACH. WAITING FOR CT RESULTS.
[2021-02-08] MEDS ORDERED: LIDOCAINE 1%, 10ML ONE (14:45)
--- NOTE | 2021-02-08 14:57 | NUR ---
PATIENT MEDICATED PER eMAR, TAKEN TO IMAGING.
[2021-02-08] MEDS ORDERED: CEFTRIAXONE 1,000 MG in DEXTROSE 5% 50 ML IVPB ONE (15:00)
[2021-02-08] MEDS ORDERED: DOXYCYCLINE 100 MG in DEXTROSE 5% 250 ML IV SCH (15:00)
[2021-02-08] MEDS ORDERED: DIAZEPAM 5 MG/ML, 2ML ONE (16:56)
[2021-02-08] MEDS ORDERED: HYDROmorphone 2 MG/ML, 1ML ONE (16:57)
[2021-02-08] MEDS ORDERED: DIAZEPAM 5 MG/ML, 2ML IV ONE (17:00)
[2021-02-08] MEDS ORDERED: HYDROmorphone 2 MG/ML, 1ML IV ONE (17:00)
[2021-02-08] MEDS ORDERED: METHOCARBAMOL 1,000 MG in DEXTROSE 5% 100 ML IV ONE (17:00)
--- NOTE | 2021-02-08 17:12 | NUR ---
PATIENT MEDICATED PER eMAR. PATIENT SITTING IN [place], WATCHING TV WITH SIGNIFICANT OTHER, NADN, VSS, CALL LIGHT WITHIN REACH.
--- NOTE | 2021-02-08 17:53 | NUR ---
REPORT TO ARNIE ZIMMERMAN FOR TRANSFER OF PATIENT CARE.
--- NOTE | 2021-02-08 18:21 | NUR ---
PATIENT TRANSFERRED IN STABLE CONDITION VIA GURNEY WITH ENTRY LEVEL TO CARDIAC TELEMETRY. ALL PATIENT BELONGINGS TAKEN TO FLOOR WITH PATIENT. ACCOMPANIED PATIENT TO FLOOR.
[2021-02-08 18:25] VITALS: BP 131/86
[2021-02-08] MEDS ORDERED: HYDROmorphone 2 MG/ML, 1ML IVPush PRN (19:30)
[2021-02-08] MEDS ORDERED: MELATONIN 5 MG TABLET PO PRN (19:30)
[2021-02-08] MEDS ORDERED: GABAPENTIN 300 MG CAPSULE PO PRN (19:30)
[2021-02-08] MEDS ORDERED: LABETALOL 5MG/ML, 20ML IVPush PRN (19:30)
[2021-02-08] MEDS ORDERED: ONDANSETRON 2MG/ML, 2ML IVPush PRN (19:30)
[2021-02-08] MEDS: ENOXAPARIN 40 MG/0.4 ML SQ SCH (21:33)
[2021-02-08] MEDS: ACETAMINOPHEN 325 MG TABLET PO PRN (21:34)
[2021-02-08] MEDS: LIDODERM 5% PATCH TD SCH (21:34)
[2021-02-08] MEDS: BACLOFEN 10 MG TABLET PO PRN (21:35)
[2021-02-08] MEDS: KETOROLAC 30 MG/1 ML IV PRN (23:18)
[2021-02-09 01:33] VITALS: BP 117/75
[2021-02-09] MEDS: CEFTRIAXONE 2 GM in DEXTROSE 5% 50 ML IVPB SCH (03:25)
[2021-02-09] MEDS: KETOROLAC 30 MG/1 ML IV PRN ×5 (03:37→21:44)
[2021-02-09 05:43] LABS: BASOPHILS % (AUTO) 1 % (0-1); EOSINOPHILS % (AUTO) 3 % (1-7); LYMPHOCYTES % (AUTO) 11 % (22-44); MEAN CORPUSCULAR HEMOGLOBIN 30.1 pg (27.5-34.5); MEAN CORPUSCULAR HGB CONC 34.4 g/dL (33.2-36.2); MEAN PLATELET VOLUME 7.3 fL (7.4-10.4); MONOCYTES % (AUTO) 15 % (2-9); NEUTROPHILS % (AUTO) 71 % (42-75); PLATELET COUNT 261 x10^3/uL (130-400); RED BLOOD COUNT 4.52 x10^6/uL (4.38-5.82)
[2021-02-09 06:06] LABS: CHLORIDE 103 mmol/L (98-107)
[2021-02-09 06:13] LABS: ANION GAP 9 mmol/L (5-15); CREATININE 0.77 mg/dL (0.7-1.3)
[2021-02-09 07:21] VITALS: BP 112/79
[2021-02-09] MEDS: AZITHROMYCIN 500 MG TABLET PO SCH (08:53)
[2021-02-09] MEDS: BACLOFEN 10 MG TABLET PO PRN ×2 (08:53→17:38)
[2021-02-09] MEDS: COLCHICINE 0.6 MG CAPSULE PO SCH (11:52)
[2021-02-09] MEDS: ACETAMINOPHEN 325 MG TABLET PO PRN ×2 (12:50→22:22)
[2021-02-09 14:20] VITALS: BP 113/73
[2021-02-09 18:16] VITALS: BP 124/78
[2021-02-09] MEDS: ENOXAPARIN 40 MG/0.4 ML SQ SCH (21:44)
[2021-02-09] MEDS: LIDODERM 5% PATCH TD SCH (21:45)
[2021-02-10 00:04] VITALS: BP 119/76
[2021-02-10] MEDS ORDERED: SODIUM CHLORIDE 0.9%, 500ML IVBOLUS ONE (00:30)
[2021-02-10] MEDS ORDERED: DOCUSATE 50 MG/5 ML, 10ML UDC PO PRN (00:30)
[2021-02-10] MEDS: CEFTRIAXONE 2 GM in DEXTROSE 5% 50 ML IVPB SCH (03:32)
[2021-02-10] MEDS: BACLOFEN 10 MG TABLET PO PRN ×3 (05:59→21:43)
[2021-02-10] MEDS: KETOROLAC 30 MG/1 ML IV PRN ×3 (05:59→18:04)
[2021-02-10 08:19] VITALS: BP 120/84
[2021-02-10] MEDS: AZITHROMYCIN 500 MG TABLET PO SCH (09:57)
[2021-02-10] MEDS: COLCHICINE 0.6 MG CAPSULE PO SCH (09:57)
[2021-02-10 13:21] VITALS: BP 131/82
[2021-02-10] MEDS: CARVEDILOL 3.125 MG TABLET PO SCH (17:44)
[2021-02-10 21:40] VITALS: BP 140/88
[2021-02-10] MEDS: LIDODERM 5% PATCH TD SCH (21:43)
[2021-02-10] MEDS: ACETAMINOPHEN 325 MG TABLET PO PRN (21:43)
[2021-02-10] MEDS: ENOXAPARIN 40 MG/0.4 ML SQ SCH (21:43)
[2021-02-11 02:38] VITALS: BP 118/81
[2021-02-11] MEDS: KETOROLAC 30 MG/1 ML IV PRN ×3 (02:40→19:46)
[2021-02-11] MEDS: CEFTRIAXONE 2 GM in DEXTROSE 5% 50 ML IVPB SCH (02:40)
[2021-02-11] MEDS: CARVEDILOL 3.125 MG TABLET PO SCH ×2 (06:27→17:54)
[2021-02-11] MEDS: BACLOFEN 10 MG TABLET PO PRN ×2 (06:28→19:47)
[2021-02-11 08:55] VITALS: BP 132/87
[2021-02-11] MEDS: ACETAMINOPHEN 325 MG TABLET PO PRN ×2 (10:28→18:06)
[2021-02-11] MEDS: AZITHROMYCIN 500 MG TABLET PO SCH (10:28)
[2021-02-11] MEDS: SODIUM CHLORIDE 0.9% 1,000 ML IV SCH (10:29)
[2021-02-11] MEDS: COLCHICINE 0.6 MG CAPSULE PO SCH (10:34)
[2021-02-11 13:20] VITALS: BP 136/90
[2021-02-11] MEDS ORDERED: OMNIPAQUE 350 MG/ML, 75ML BOTTLE ONE (16:14)
[2021-02-11] MEDS: ENOXAPARIN 40 MG/0.4 ML SQ SCH (19:47)
[2021-02-11 20:18] VITALS: BP 132/83
[2021-02-11] MEDS: LIDODERM 5% PATCH TD SCH (20:22)
[2021-02-12 01:35] VITALS: BP 127/80
[2021-02-12] MEDS: CEFTRIAXONE 2 GM in DEXTROSE 5% 50 ML IVPB SCH (02:43)
[2021-02-12] MEDS: SODIUM CHLORIDE 0.9% 1,000 ML IV SCH (02:43)
[2021-02-12] MEDS: KETOROLAC 30 MG/1 ML IV PRN ×2 (03:30→09:21)
[2021-02-12] MEDS: CARVEDILOL 3.125 MG TABLET PO SCH (05:39)
[2021-02-12 07:28] VITALS: BP 118/77
[2021-02-12] MEDS ORDERED: ACETAMINOPHEN 325 MG TABLET PO PRN (08:30)
[2021-02-12] MEDS ORDERED: SODIUM CHLORIDE 0.9% 1,000 ML IV SCH (09:00)
[2021-02-12] MEDS: COLCHICINE 0.6 MG CAPSULE PO SCH (09:21)
[2021-02-12] MEDS ORDERED: ACET325T26 PO (10:35)
[2021-02-12] MEDS ORDERED: LIDO700A20 TD (10:35)
[2021-02-12] MEDS ORDERED: CARV3.1212 PO (10:35)
[2021-02-12] MEDS ORDERED: COLC0.6C3 PO (10:35)
== END 2021-02-12 12:51 | disposition home or self-care (01) | DRG 186 ==
LOC: ED 11:27 → EDIP 16:39 → 5SO 18:21
PROVIDERS: ADMIT Family Medicine; ATTEND Internal Medicine
PROC: 0W993ZZ Drainage of Right Pleural Cavity, Percutaneous Approach (ICD-10-PCS; principal; 2021-02-08)
DX: J90 Pleural effusion, not elsewhere classified (principal); J86.9 Pyothorax without fistula; J15.9 Unspecified bacterial pneumonia; R65.10 Systemic inflammatory response syndrome (SIRS) of non-infectious origin without acute organ dysfunction; Z99.11 Dependence on respirator [ventilator] status; R00.0 Tachycardia, unspecified; R07.81 Pleurodynia; B97.89 Other viral agents as the cause of diseases classified elsewhere; R09.02 Hypoxemia; D72.829 Elevated white blood cell count, unspecified; Z82.49 Family history of ischemic heart disease and other diseases of the circulatory system; Z86.16 Personal history of COVID-19; Z87.01 Personal history of pneumonia (recurrent); Z93.0 Tracheostomy status
CPT/HCPCS: 32555; 36415; 82945; 83986; 84145; 89051; 99285; J3490; 71045; 71260; 71275; 80048; 80053; 83605; 84157; 85025; 85379; 87040; 87070; 87205; 93005; G0378; J0696; J1170; J1650; J1885; J3360; J7060; Q9967; J2270; J2800; J7030; J7040